=== PATIENT | female | born 2000 | race Caucasian/White ===

== ENCOUNTER 2024-12-31 22:48 | Emergency (ER) | payer SELFPAY ==
[2025-01-01] MEDS ORDERED: METOCLOPRAMIDE 10 MG/2mL INJ ONE (00:23)
[2025-01-01] MEDS ORDERED: NA CHLORIDE 0.9% 1,000 ML ONE (00:23)
[2025-01-01] MEDS ORDERED: DIPHENHYDRAMINE 50 MG/ML VIAL ONE (00:23)
[2025-01-01] MEDS ORDERED: FAMOTIDINE 20 MG/2 ML VIAL IV ONE (00:23)
[2025-01-01 00:28] LABS: Absolute Eosinophils 0.1 K/uL (0-0.5); Absolute Monocytes 0.7 K/uL (0.1-1.3); Absolute Neutrophil 8.4 K/uL (1.8-8.0); Basophils % 0.3 % (0-1.3); Eosinophils % 1.1 % (0-4.4); Hematocrit 33.8 % (36.0-45.0); Hemoglobin 11.6 g/dL (12.0-15.0); Lymphocytes % 17.9 % (15.3-44.8); MCH 28.7 pg (27.0-35.0); MCHC 34.5 g/dL (32.0-36.0); MCV 83.4 fL (80-100); MPV 8.1 fL (7.6-11.3); Monocytes % 6.1 % (3.3-12.3); Neutrophils % 74.6 % (41.7-73.7); Platelets 315 thou/uL (152-406); RBC Red Blood Cell Count 4.05 M/uL (3.86-4.86)
[2025-01-01 00:53] LABS: Specific Gravity 1.018 (1.005-1.030); Urine Bilirubin NEGATIVE (Negative); Urine Blood Negative (Negative); Urine Clarity Clear (Clear); Urine Color Light-Yellow (Yellow); Urine Glucose NEGATIVE (Negative); Urine Ketones NEGATIVE (Negative); Urine Microscopic Reflex YN NO UMIC; Urine Nitrite NEGATIVE (Negative); Urine Protein NEGATIVE (Negative); Urine Urobilinogen Normal (Normal); Urine pH 6.5 (5.0-7.0)
[2025-01-01 00:58] LABS: Albumin 3.4 g/dL (3.4-5.0); Albumin/Globulin Ratio 0.9 (1.1-1.8); Anion Gap 6.7 mEq/L (5.0-15.0); Bilirubin Total 0.4 mg/dL (0.2-1.0); Globulin 3.6 g/dL (2.3-3.5); Potassium 3.7 mEq/L (3.5-5.1)
--- NOTE | 2025-01-01 02:55 | ER ---
Nurse's Notes [facility] Name: Ginger Tineo Age: 24 yrs Sex: Female : 2000 Arrival Date: 12/31/2024 Time: 22:48 Bed 18 Private MD: Diagnosis: Other specified related conditions, first trimester;Nausea with vomiting, unspecified Presentation: 12/31 23:09 Chief complaint: Patient states: NAUSEA AND VOMITING BLOOD TINGED AND BLOOD. PT IS 9 br2 WEEKS PREG...LOWER AB CRAMPS. Coronavirus screen: Client denies travel out of the [place] in the last 14 days. Ebola Screen: Patient denies exposure to infectious person. Initial Sepsis Screen: Does the patient meet any 2 criteria? No. Patient's initial sepsis screen is negative. Does the patient have a suspected source of infection? No. Patient's initial sepsis screen is negative. Risk Assessment: Do you want to hurt yourself or someone else? Patient reports no desire to harm self or others. Onset of symptoms was December 31, 2024 at 20:30. 23:09 Method Of Arrival: Ambulatory br2 23:09 Acuity: TAMI 3 br2 Triage Assessment: 23:12 General: Appears uncomfortable, Behavior is calm, cooperative. Pain: Complains of pain br2 in right lower quadrant and left lower quadrant Pain currently is 2 out of 10 on a pain scale. GI: Reports lower abdominal pain, cramping. 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 - Infectious Disease History:: Denies. - Social history:: Smoking status: Patient/guardian denies using alcohol, street drugs. Screenin:40 [facility] ED Fall Risk Assessment (Adult) History of falling in the last 3 months, kj2 including since admission No falls in past 3 months (0 pts) Confusion or Disorientation No (0 pts) Intoxicated or Sedated No (0 pts) Impaired Gait No (0 pts) Mobility Assist Device Used No (0 pt) Altered Elimination No (0 pt) Score/Fall Risk Level 0 - 2 = Low Risk Maintained a safe environment, Hourly rounding (assess needs \T\ fall precautionary measures) done. Abuse screen: Denies threats or abuse. Denies injuries from another. Nutritional screening: No deficits noted. Tuberculosis screening: No symptoms or risk factors identified. Assessment: 23:40 General: Appears in no apparent distress. Behavior is calm, cooperative. Neuro: Level kj2 of Consciousness is awake, alert, obeys commands, Oriented to person, place, time, situation. Cardiovascular: Patient's skin is warm and dry. Respiratory: Airway is patent Respiratory effort is even, unlabored. GI: Abdomen is non-distended. : No signs and/or symptoms were reported regarding the genitourinary system. 01/01 00:20 Reassessment: Patient appears in no apparent distress at this time. Patient and/or kj2 family updated on plan of care and expected duration. Pain level reassessed. Patient is alert, oriented x 3, equal unlabored respirations, skin warm/dry/pink. 01:22 Reassessment: Patient and/or family updated on plan of care and expected duration. Pain br2 level reassessed. Patient is alert, oriented x 3, equal unlabored respirations, skin warm/dry/pink. Patient states feeling better. Patient states symptoms have improved. 02:53 Reassessment: Patient and/or family updated on plan of care and expected duration. Pain br2 level reassessed. Patient is alert, oriented x 3, equal unlabored respirations, skin warm/dry/pink. Patient states feeling better. Patient states symptoms have improved. Vital Signs: 12/31 23:09 BP 134 / 79; Pulse 88; Resp 18; Pulse Ox 100% on R/A; Weight 97.07 kg; Height 5 ft. 6 br2 in. ; Pain 2/10; 01/01 01:18 BP 122 / 55; Pulse 96; Resp 18; Pulse Ox 98% ; br2 02:53 BP 121 / 74; Pulse 90; Resp 18; Pulse Ox 100% on R/A; Pain 2/10; br2 03:08 BP 111 / 56; Pulse 92; Resp 18; Pulse Ox 99% on R/A; br2 12/31 23:09 Body Mass Index 34.54 (97.07 kg, 167.64 cm) br2 04/20 23:09 Pain Scale: Adult br2 02:53 Pain Scale: Adult br2 ED Course: 12/31 22:52 Patient arrived in ED. im 22:56 Chano Pinto PA is PHCP. cp 22:56 Quan Gomez MD is Attending Physician. cp 23:12 Triage completed. br2 23:40 Arm band placed on Patient placed in an exam room, on a stretcher. kj2 23:40 Patient has correct armband on for positive identification. Bed in low position. Call kj2 light in reach. Adult w/ patient. Provided Education on: call light. 23:50 Inserted saline lock: 20 gauge in left antecubital area, using aseptic technique. Blood kj2 collected. Flushed with 10 mL NS. 01/01 00:02 Lali Stephens, JOSE MANUEL is Primary Nurse. kj2 00:59 1St Trimest Single 1St Fetus In Process Unspecified. EDMS 03:09 IV discontinued, intact, bleeding controlled, No redness/swelling at site. Pressure br2 dressing applied. Administered Medications: 00:44 Drug: Famotidine IVP 20 mg IVP once; dilute with 10 mL 0.9% NaCl; give over 2 minutes kj2 Route: IVP; Site: left antecubital; 00:44 Drug: diphenhydrAMINE IVP 25 mg IVP once Route: IVP; Site: left antecubital; kj2 01:30 Follow up: Response: No adverse reaction br2 00:44 Drug: metoCLOPramide IVP 10 mg IVP once; over 1 to 2 minutes Route: IVP; Site: left kj2 antecubital; 01:30 Follow up: Response: No adverse reaction br2 00:45 Drug: NS 0.9% IV 1000 ml IV at 1 bolus Per protocol; to be given as a bolus over 60 kj2 minutes Route: IV; Rate: 1 bolus; Site: left antecubital; Medication: 12/31 23:40 VIS not applicable for this client. kj2 Outcome: 01/01 02:54 Discharge ordered by . cp 03:10 Patient left the ED. br2 Signatures: Dispatcher [employer] EDMS Chano Pinto PA PA cp Mendoza, Itzel im Riddle, Belinda, RN RN br2 Lali Stephens RN RN kj2 Corrections: (The following items were deleted from the chart) 00:59 00:53 In radiology for [facility]+US.RAD.BRZ. EDMS EDMS
--- NOTE | 2025-01-01 02:55 | EDPHYS ---
Physician Documentation [facility] Name: Ginger Tineo Age: 24 yrs Sex: Female : 2000 Arrival Date: 12/31/2024 Time: 22:48 Bed 18 Private MD: ED Physician Quan Gomez HPI: 12/31 23:35 This 24 yrs old Female presents to ER via Ambulatory with complaints of 9 weeks cp , Vomiting - Blood. 23:35 The patient presents to the emergency department with abdominal pain, of the right cp lower quadrant and left lower quadrant, described as crampy, nausea and vomiting, that started today, and is intermittent, described as bilious, bright red blood. The estimated gestational age is 9 weeks. 23:35 course: care: private OB physician, Leakage of Fluid: none cp appreciated. Associated signs and symptoms: Pertinent positives: vomiting when attempting to eat and/or drink, noticed red blood in vomitus, Pertinent negatives: diarrhea, fever, active vomiting. 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 - Infectious Disease History:: Denies. - Social history:: Smoking status: Patient/guardian denies using alcohol, street drugs. ROS: 23:40 Constitutional: Positive for poor PO intake, Negative for body aches, chills, fever, cp 23:40 Eyes: Negative for injury, pain, redness, and discharge, cp 23:40 ENT: Negative for drainage from ear(s), ear pain, sore throat, difficulty swallowing, difficulty handling secretions, 23:40 Respiratory: Negative for cough, shortness of breath, wheezing, 23:40 Abdomen/GI: Positive for nausea and vomiting, abdominal cramps, hematemesis, Negative for diarrhea, constipation, black/tarry stool, rectal bleeding, 23:40 Neuro: Negative for altered mental status, dizziness, headache, syncope, near syncope, weakness, 23:40 : Negative for vaginal bleeding, vaginal discharge, cp 23:40 All other systems are negative, Exam: 23:45 Constitutional: The patient appears in no acute distress, alert, awake, comfortable, cp non-toxic, well developed, well nourished, 23:45 Head/Face: Normocephalic, atraumatic. cp 23:45 Eyes: Periorbital structures: appear normal, Conjunctiva: normal, no exudate, no injection, Sclera: no appreciated abnormality, Lids and lashes: appear normal, bilaterally, 23:45 ENT: External ear(s): are unremarkable, Nose: is normal, Mouth: Lips: moist, Oral mucosa: moist, Posterior pharynx: Airway: no evidence of obstruction, patent, erythema, that is mild, exudate, is not appreciated, 23:45 Chest/axilla: Inspection: normal, 23:45 Cardiovascular: Rate: normal, Rhythm: regular, 23:45 Respiratory: the patient does not display signs of respiratory distress, Respirations: normal, no use of accessory muscles, no retractions, labored breathing, is not present, Breath sounds: are clear throughout, no decreased breath sounds, no stridor, no wheezing, 23:45 Abdomen/GI: Inspection: abdomen appears normal, Bowel sounds: active, all quadrants, Palpation: abdomen is soft and non-tender, in all quadrants, 23:45 Back: CVA tenderness, is absent, 23:45 Neuro: Orientation: to person, place \T\ time. Mentation: is normal, Motor: moves all fours, strength is normal, Sensation: is normal, Vital Signs: 23:09 BP 134 / 79; Pulse 88; Resp 18; Pulse Ox 100% on R/A; Weight 97.07 kg; Height 5 ft. 6 br2 in. ; Pain 2/; 01/01 01:18 BP 122 / 55; Pulse 96; Resp 18; Pulse Ox 98% ; br2 02:53 BP 121 / 74; Pulse 90; Resp 18; Pulse Ox 100% on R/A; Pain 2/10; br2 03:08 BP 111 / 56; Pulse 92; Resp 18; Pulse Ox 99% on R/A; br2 12/31 23:09 Body Mass Index 34.54 (97.07 kg, 167.64 cm) br2 12/31 23:09 Pain Scale: Adult br2 02:53 Pain Scale: Adult br2 MDM: 12/31 23:06 Medical Screening Exam initiated cp 01/01 00:00 Differential diagnosis: anemia, upper GI bleed, dehydration, electrolyte abnormality, cp threatened miscarriage, uti. 02:53 Data reviewed: vital signs, nurses notes, lab test result(s), radiologic studies, cp ultrasound, and as a result, I will discharge patient. 02:53 I considered the following discharge prescriptions or medication management in the emergency department Medications were administered in the Emergency Department. See MAR. Counseling: I had a detailed discussion with the patient and/or guardian regarding the historical points, exam findings, and any diagnostic results supporting the discharge/admit diagnosis, lab results, radiology results, to return to the emergency department if symptoms worsen or persist or if there are any questions or concerns that arise at home. Response to treatment: the patient's symptoms have markedly improved after treatment, VSS. Nausea improved and vomiting resolved. No active vomiting observed while monitoring patient. Will discharge to home for continued monitoring. 12/31 23:32 Order name: CBC with Diff; Complete Time: 01:15 01/01 01:15 Interpretation: Normal except: WBC 11.30; HGB 11.6; HCT 33.8; DANY% 74.6; NEUT A 8.4. 12/31 23:32 Order name: CMP; Complete Time: 01:15 01/01 01:16 Interpretation: Normal except: CL 109; AST 11; GLOB 3.6; A/G 0.9. 12/31 23:32 Order name: Lipase; Complete Time: 01:15 12/31 23:32 Order name: Test, Urine; Complete Time: 01:15 01/01 01:16 Interpretation: Reviewed. 12/31 23:32 Order name: Urinalysis w/ reflexes; Complete Time: 01:15 12/31 23:32 Order name: Abo/rh Typing; Complete Time: 01:29 01/01 01:29 Interpretation: Reviewed. 12/31 23:32 Order name: Quantitative Hcg; Complete Time: 01:15 01/01 01:16 Interpretation: Abnormal: HCGQ [id number]. 01/01 00:59 Order name: 1St Trimest Single 1St Fetus EDMS 12/31 23:32 Order name: IV Saline Lock; Complete Time: 00:19 12/31 23:32 Order name: Labs collected and sent; Complete Time: 00:19 12/31 23:32 Order name: NPO; Complete Time: 00:19 cp 01/01 01:55 Order name: PO challenge; Complete Time: 03:09 cp Administered Medications: 00:44 Drug: Famotidine IVP 20 mg IVP once; dilute with 10 mL 0.9% NaCl; give over 2 minutes kj2 Route: IVP; Site: left antecubital; 00:44 Drug: diphenhydrAMINE IVP 25 mg IVP once Route: IVP; Site: left antecubital; kj2 01:30 Follow up: Response: No adverse reaction br2 00:44 Drug: metoCLOPramide IVP 10 mg IVP once; over 1 to 2 minutes Route: IVP; Site: left kj2 antecubital; 01:30 Follow up: Response: No adverse reaction br2 00:45 Drug: NS 0.9% IV 1000 ml IV at 1 bolus Per protocol; to be given as a bolus over 60 kj2 minutes Route: IV; Rate: 1 bolus; Site: left antecubital; Disposition: 01/02 02:21 Co-signature as Attending Physician, Quan Gomez MD I agree with the assessment sp4 and plan of care. I reviewed the patient's care provided by the Advanced Practice Provider and agree with the diagnosis and treatment plan. Disposition Summary: 01/01/25 02:54 Discharge Ordered Notes: Location: Home cp Problem: new cp Symptoms: have improved cp Condition: Stable cp Diagnosis - Other specified related conditions, first trimester cp - Nausea with vomiting, unspecified cp Followup: cp - With: Private Physician - When: 2 - 3 days - Reason: Recheck today's complaints Discharge Instructions: - Discharge Summary Sheet cp - Abdominal Pain During cp - Nausea and Vomiting, Adult cp - First Trimester of cp Forms: - Medication Reconciliation Form cp - Antibiotic Education cp - Prescription Opioid Use cp - Patient Portal Instructions cp - Leadership Thank You Letter cp Prescriptions: - Pepcid 20 mg Oral Tablet - take 1 tablet ORAL route every 12 hours for 10 days; 20 tablet; Refills: 0, cp Product Selection Permitted - Reglan 10 mg Oral Tablet - take 1 tablet ORAL route every 6 hours take 30 minutes before meals and at cp bedtime; 20 tablet; Refills: 0, Product Selection Permitted Signatures: [facility] Chano Pinto PA PA cp Quan Gomez MD MD sp4 Twila Hubbard, RN RN br2 Lali Stephens RN RN kj2 Corrections: (The following items were deleted from the chart) 12/31 23:32 23:32 CBC+H.LAB.BRZ ordered. EDMS EDMS 23:32 23:32 COMPREHENSIVE METABOLIC PANEL+C.LAB.BRZ ordered. EDMS EDMS 23:32 23:32 LIPASE+C.LAB.BRZ ordered. EDMS EDMS 23:32 23:32 Test, Urine+UC.LAB.BRZ ordered. EDMS EDMS 23:32 23:32 Urinalysis+U.LAB.BRZ ordered. EDMS EDMS 23:32 23:32 ABO/RH TYPING+BB.LAB.BRZ ordered. EDMS EDMS 23:32 23:32 QUANTITATIVE HCG+C.LAB.BRZ ordered. EDMS EDMS 01/01 00:59 00:01 OB Limited+US.RAD.BRZ ordered. EDMS EDMS 18:22 12/31 23:40 All other systems are negative, cp cp
[2025-01-01 03:20] VITALS: BP 111/56; O2SAT 99
--- NOTE | 2025-01-01 04:03 | RAD REPORT ---
EXAM: US First Trimester , Transabdominal CLINICAL HISTORY: The patient is 24 years old and is Female; Abd pain;Nausea/Vomiting TECHNIQUE: Real-time transabdominal obstetrical ultrasound of the maternal pelvis and a first trimester pregna ncy with image documentation. COMPARISON: No relevant prior studies available. FINDINGS: GESTATION: A single intrauterine gestational sac is present. A pole with a crown-rump lengt h of 2.3 cm correlating to 9 weeks 0 days is present. heart rate 173 bpm. PLACENTA/AMNIOTIC FLUID: Cannot be adequately evaluated due to the early gestational age. UTERUS/CERVIX: Unremarkable. No myometrial mass. OVARIES: The ovaries are not visualized secondary to bowel gas. No mass. FREE FLUID: No free fluid. IMPRESSION: Single IUP at 9 weeks 0 days with heart rate of 173 bpm. Electronically signed by: America Leyva MD 01/01/2025 01:34 AM CDT RP Due to temporary technical issues with the PACS/PENRITH reporting system, reports are being yaquelin d by the in-house radiologist without review as a courtesy to ensure prompt reporting the interpreting radiologist is fully responsible for the content of the report. Transcribed Date/Time: 01/01/2025 4:03 AM
== END 2025-01-01 03:10 | disposition home or self-care (01) ==
LOC: ER 22:48
DX: O21.9 Vomiting of pregnancy, unspecified (principal); Z3A.09 9 weeks gestation of pregnancy
CPT/HCPCS: 36415; 76801; 80053; 81003; 81025; 83690; 84702; 85025; 86900; 86901; 96374; 96375; 99284; J1200; J2765; J7030